=== PATIENT | male | born 1970 | race Caucasian/White ===

== ENCOUNTER 2018-07-07 09:56 | Outpatient (CLI) | payer BC | END 2018-07-07 09:57 | disposition home or self-care (01) | LOC: RAD 09:56 ==

== ENCOUNTER 2018-08-13 07:30 | Outpatient (CLI) | payer BC | END 2018-08-13 07:31 | disposition home or self-care (01) | LOC: PAT 07:30 ==

== ENCOUNTER 2018-08-26 10:04 | Day surgery (SDC) | payer BC ==
[2018-08-13 08:18] VITALS: BMI 39.1
[2018-08-26] MEDS ORDERED: Bupivacaine 0.5% 50 ML IJ ONE (13:19)
[2018-08-26] MEDS ORDERED: Succinylcholine 200 mg/10 ml Inj IV ONE (14:00)
[2018-08-26] MEDS ORDERED: Midazolam 2 MG/2 ML VIAL ONE (14:00)
[2018-08-26] MEDS ORDERED: Rocuronium 10 mg/ml (5 ml) ONE ×2 (14:00→15:04)
[2018-08-26] MEDS ORDERED: Propofol 10 mg/ml Inj (20 ML) ONE (14:00)
[2018-08-26] MEDS ORDERED: CeFAZolin 1 gm in NS 100ml IVPB ONE (14:15)
[2018-08-26] MEDS ORDERED: Bupivacaine 0.5% Inj(30mL) IJ ONE ×2 (14:16)
[2018-08-26] MEDS ORDERED: Glycopyrrolate 0.2 mg/ml (2ml vial) ONE (15:17)
[2018-08-26] MEDS ORDERED: Oxycodone/Acetaminophen 5/325 mg Tab PO PRN (15:55)
[2018-08-26] MEDS ORDERED: HYDROmorphone 0.5 mg/0.5 ml ISec IVP ONE ×2 (16:00→16:15)
[2018-08-26] MEDS ORDERED: HYDROmorphone 0.5 mg/0.5 ml ISec ONE ×2 (16:02→16:17)
[2018-08-26] MEDS ORDERED: HYDROmorphone 0.5 mg/0.5 ml ISec IVP PRN (16:03)
--- NOTE | 2018-08-26 16:05 | PCM.SURG1 ---
Surgeon's Initial Post Op Note - Surgeon's Notes Surgeon: Dr. Cage Dean For Student Affairs: Barbara Aguayo, PGY-2; Solo Schmitt, PGY-2, Gilberto Bailey, OMS-3 Type of Anesthesia: General Endo Anesthesia Administered By: Dr. Caicedo Pre-Operative Diagnosis: Symptomatic cholelithasis Operative Findings: See op report Post-Operative Diagnosis: Cholelithiasis Operation Performed: Laparoscopic cholecystectomy Specimen/Specimens Removed: Gallbladder Estimated Blood Loss: EBL {In ML}: 5 Blood Products Given: N/A Drains Used: No Drains Post-Op Condition: Good Date of Surgery/Procedure: 08/26/18 Time of Surgery/Procedure: 16:05
[2018-08-26] MEDS ORDERED: Lactated Ringer's 1,000 ML IV SCH (16:15)
[2018-08-26 17:16] VITALS: RESP 18; TEMP 98.3
[2018-08-26 17:39] VITALS: BP 135/92; PULSE 100; O2SAT 98
--- NOTE | 2018-08-26 20:58 | PCM.OP ---
Operative Report - Operative Report Date of Surgery/Procedure: 08/26/18 Time of Surgery/Procedure: 15:35 Surgeon: Dr. Albert Cage Trim Sawyer: Barbara Aguayo, PGY-2; Solo Schmitt, PGY-2, Gilberto Bailey OMS-3 Anesthesia/Sedation: General Endotracheal Pre-Operative Diagnosis: Symptomatic cholelithiasis Post-Operative Diagnosis: Cholelithiasis Indication for Surgery: RUQ abdominal pain, swelling, nausea Operative Findings: Guicho Kidd is a 47 year old male with PMH significant for RUQ abdominal pain, swelling, nausea and recurrent emesis. Patient was evaluated and found to have cholelithiasis. It was determined that patient would benefit from elective laparoscopic cholecystectomy. All risks and benefits were discussed with patient prior to procedure. Consent was obtained prior to procedure. All questions were answered. Patient was brought into the operating room and laid supine upon the operating table. A time out was performed identifying patient, procedure and laterality. The patient was prepped and draped in the usual sterile fashion. A supraumbilical incision was made. A Veress was inserted into the umbilicus and insufflation was introduced. A Visport was inserted into the supraumbilical incision and all layers of the abdominal wall were visualized as the trochar was introduced. The obturator was removed and the laparoscope was re-introduced into the port and the abdomen was evaluated. No abnormalities or enterotomies were noted. A 5 mm port was then placed in the epigastrium, and an additional two 5 mm ports were placed in the left mid quadrant under direct visualization. The gallbladder was identified, the infundibulum was identified and retracted anteriorly and caudally. The periotoneum was dissected medially and laterally exposing the cystic duct and cystic artery. The cystic artery was circumferentially dissected. The cystic duct was circumferentially dissected. The critical view of safety was achieved. The cystic duct was then triply clipped and divided with good hemostasis. The cystic artery was triply clipped and divided. The gallbladder was partially dissected off the cystic plate. The gallbladder was decompressed with a a small amount of bile leakage during suction removal of the bile. The area was irrigated after completion of gallbladder decompression. The remainder of the gallbladder was dissected free from the cystic plate. The gallbladder was placed in a specimen retrieval bag and removed from the intra-abdominal cavity. Of note- the gallbladder had several large brown stones the required crushing prior to successful removal of the specimen. The cystic plate was inspected and hemostasis was achieved with electrocautery. The area was thoroughly irrigated and irrigation fluid was successful removed using suction irrigation. The fascia of the supraumbilical port was closed in a figure of eight configuration using 4-O Vicryl on a UR-6 needle. All skin incisions were closed using 4-0 Monocryl. Surgical glue was then applied. All sponges, sutures and instrument counts were declared to be correct at the end of the procedure. The patient was extubated and taken to the post anesthesia care unit in stable condition. Procedure/Operation Description: Laparoscopic cholecystectomy Estimated Blood Loss: 5cc Blood Replaced: Not indicated Sponge/Instrument Count: Declared to be correct at end of surgery Drains: None Complications: None Specimen: Gallbladder Discharge & Condition: Stable, to be cleared for discharge home when meets criteria
== END 2018-08-26 18:15 | disposition home or self-care (01) ==
LOC: SDS 10:04
PROVIDERS: ATTEND Surgery
DX: K80.10 Calculus of gallbladder with chronic cholecystitis without obstruction (principal); E11.9 Type 2 diabetes mellitus without complications; E66.9 Obesity, unspecified; Z68.39 Body mass index [BMI] 39.0-39.9, adult; Z98.84 Bariatric surgery status
CPT/HCPCS: 47562; 82948; 88304; J0330; J0690; J1170; J1885; J2250; J2405; J2704; J2765; J3010; J7120 ×2